=== PATIENT | female | born 1995 | race Caucasian/White ===

== ENCOUNTER 2016-10-22 07:31 | Emergency (ER) | payer SELFPAY ==
[2016-10-22] MEDS ORDERED: MORPHINE SULFATE 10 MG/ML INJ IV ONE ×2 (07:48→08:30)
[2016-10-22 08:05] LABS: ABSOLUTE BASOPHILS # (AUTO) 0.1 10^3/uL (0.0-0.2); ABSOLUTE EOSINOPHILS # (AUTO) 0.5 10^3/uL (0.0-0.6); ABSOLUTE LYMPHOCYTES (AUTO) 1.9 10^3/uL (0.5-4.7); ABSOLUTE MONOCYTES (AUTO) 0.6 10^3/uL (0.1-1.4); BASOPHILS % (AUTO) 0.8 % (0-2); EOSINOPHILS % (AUTO) 6.9 % (0-6); HEMATOCRIT 35.5 % (36.0-47.0); HGB HCT DIFFERENCE 0.5; LYMPHOCYTES % (AUTO) 27.5 % (13-45); MEAN CORPUSCULAR HEMOGLOBIN 31.2 pg (27.0-33.4); MEAN CORPUSCULAR VOLUME 92 fl (80-97); MONOCYTES % (AUTO) 7.9 % (3-13); RED BLOOD COUNT 3.86 10^6/uL (3.72-5.28); RED CELL DISTRIBUTION WIDTH 12.9 % (11.5-14.0); SEGMENTED NEUTROPHILS % (AUTO) 56.9 % (42-78); WHITE BLOOD COUNT 7.1 10^3/uL (4.0-10.5)
[2016-10-22 08:09] LABS: APPEARANCE,URINE CLEAR; BILIRUBIN,URINE NEGATIVE (NEGATIVE); GLUCOSE, URINE NEGATIVE (NEGATIVE); KETONES,URINE NEGATIVE (NEGATIVE); LEUKOCYTE ESTERASE,URINE NEGATIVE (NEGATIVE); NITRITE,URINE NEGATIVE (NEGATIVE); PROTEIN,URINE NEGATIVE (NEGATIVE); UROBILINOGEN,URINE NEGATIVE mg/dL (<2.0)
[2016-10-22 08:23] VITALS: BP 113/62
[2016-10-22 08:27] LABS: ALANINE AMINOTRANSFERASE 19 U/L (9-52); ALBUMIN 3.4 g/dL (3.5-5.0); ALKALINE PHOSPHATASE 48 U/L (38-126); ANION GAP 6 (5-19); ASPARTATE AMINO TRANSFERASE 16 U/L (14-36); BILIRUBIN,DIRECT 0.3 mg/dL (0.0-0.4); BILIRUBIN,TOTAL 0.4 mg/dL (0.2-1.3); BLOOD UREA NITROGEN 7 mg/dL (7-20); CALCIUM 8.3 mg/dL (8.4-10.2); CARBON DIOXIDE 25 mmol/L (22-30); CHLORIDE 107 mmol/L (98-107); CREATININE RESULT 0.62 mg/dL (0.52-1.25); GLUCOSE 88 mg/dL (75-110); LIPASE 62.6 U/L (23-300); POTASSIUM 3.7 mmol/L (3.6-5.0); SODIUM 138.2 mmol/L (137-145); TOTAL PROTEIN 5.8 g/dL (6.3-8.2)
--- NOTE | 2016-10-22 10:06 | RADIOLOGY REPORT (SQ) ---
EXAM DESCRIPTION: U/S NON OB PEL W/DOPPLER COMPLETED DATE/TIME: 10/22/2016 9:36 am REASON FOR STUDY: rlq pain, no appendix COMPARISON: None. TECHNIQUE: Dynamic and static grayscale images acquired of the pelvis via transvaginal approach and recorded on PACS. Additional selected color Doppler and spectral images recorded. LIMITATIONS: None. FINDINGS: UTERUS: Contour normal. No mass. ENDOMETRIAL STRIPE: No focal or generalized thickening. No masses. CERVIX: No nabothian cysts. RIGHT OVARY: Largely occupied by a 7.8 cm diameter cyst. RIGHT OVARY DOPPLER: Normal arterial vascular flow without evidence for torsion. LEFT OVARY: No abnormal masses. LEFT OVARY DOPPLER: Normal arterial vascular flow without evidence for torsion. FREE FLUID: None noted. OTHER: No other significant finding. MEASUREMENTS: UTERUS: 6.6 x 5.6 x 3.5 cm ENDOMETRIAL STRIPE: 9 mm RIGHT OVARY: 8.0 x 8.5 x 5.9 cm LEFT OVARY: 3.1 x 2.5 x 1.6 cm. IMPRESSION: 8 cm cyst right ovary. TECHNICAL DOCUMENTATION: JOB ID: [id number] [employer]- All Rights Reserved
--- NOTE | 2016-10-22 10:17 | ER Document Report ---
ED GI/ - General Chief Complaint: Flank Pain Stated Complaint: FLANK PAIN Time Seen by Provider: 10/22/16 07:35 Mode of Arrival: Medic Information source: Patient Notes: Pt is a 21 year old female who presents to the ER today for right lower abdominal pain x 1 day. She has a history of ovarian cysts. She admits to nausea but no vomiting this morning. She denies diarrhea, abnormal vaginal discharge, dysuria, hematuria, hx of kidney stones, fever/chills. She does not have an appendix due to appendicitis nor does she have a gallbladder. TRAVEL OUTSIDE OF THE [place] IN LAST 30 DAYS: No - Related Data Allergies/Adverse Reactions: amitriptyline Allergy (Verified 10/22/16 08:06) doxycycline Allergy (Verified 10/22/16 08:06) Penicillins Allergy (Verified 10/22/16 08:06) Past Medical History - General Information source: Patient - Social History Smoking Status: Never Smoker Chew tobacco use (# tins/day): No Frequency of alcohol use: None Drug Abuse: None Family History: Reviewed & Not Pertinent Past Surgical History: Reports: Hx Appendectomy, Hx Cholecystectomy Review of Systems - Review of Systems Constitutional: No symptoms reported EENT: No symptoms reported Cardiovascular: No symptoms reported Respiratory: No symptoms reported Gastrointestinal: See HPI Genitourinary: No symptoms reported Female Genitourinary: No symptoms reported Musculoskeletal: No symptoms reported Skin: No symptoms reported Hematologic/Lymphatic: No symptoms reported Neurological/Psychological: No symptoms reported Physical Exam - Vital signs Vitals: Temp Pulse Resp BP Pulse Ox 98.8 F 80 20 113/62 100 10/22/16 08:07 10/22/16 08:07 10/22/16 08:07 10/22/16 08:07 10/22/16 08:07 - Notes Notes: PHYSICAL EXAMINATION: GENERAL: Mildly uncomfortable, but in no acute distress. HEAD: Atraumatic, normocephalic. EYES: Pupils equal round and reactive to light, extraocular movements intact, sclera anicteric, conjunctiva are normal. NECK: Normal range of motion, supple without lymphadenopathy LUNGS: CTAB and equal. No wheezes rales or rhonchi. HEART: Regular rate and rhythm without murmurs ABDOMEN: Soft, right lower quadrant tenderness. No guarding, no rebound BACK: no vertebral tenderness, normal ROM GI/: no CVA tenderness EXTREMITIES: Normal range of motion, no pitting edema. No cyanosis. NEUROLOGICAL: Cranial nerves grossly intact. Normal sensory/motor exams. PSYCH: Normal mood, normal affect. SKIN: Warm, Dry, normal turgor, no rashes or lesions noted Course - Re-evaluation Re-evalutation: 10/22/16 11:18 WBC is normal, labwork normal, negative, vital signs all normal. ultrasound reports an 8cm right ovarian cyst. COLBY Ching surface to air weapons officer, was called and states that this is to be followed up outpatient, no reason based on workup today for admission or surgery today. Pt keeps declining pain medicine saying "I don't like narcotics." Mother and grandmother were upset during this visit because they state they want "this taken care of today." They keep referring to the surgery she's had in the past on her right ovarian cyst from the ER to the OR but she had appendicitis at that time and they found the ovarian cyst as well. I told family multiple times during this visit that she only went straight to the OR because she had appendicitis, that that's not how you manage an ovarian cyst. Mom left the ER and went to Dr. Kerr's office to "see what we can get done about this today!" I did advise family multiple times that this is not how you manage an ovarian cyst. I am sending pt home with pain medication and having her follow up with women's health. anatoliy Ching surface to air weapons officer agrees. - Vital Signs Vital signs: Temp Pulse Resp BP Pulse Ox 98.8 F 80 20 113/62 100 10/22/16 08:07 10/22/16 08:07 10/22/16 08:07 10/22/16 08:07 10/22/16 08:07 - Laboratory Result Diagrams: 10/22/16 07:45 10/22/16 07:45 Laboratory results interpreted by me: 10/22/16 10/22/16 07:45 07:45 Hct 35.5 L Eosinophils % 6.9 H Calcium 8.3 L Total Protein 5.8 L Albumin 3.4 L Discharge - Discharge Clinical Impression: Ovarian cyst, right Condition: Stable Disposition: HOME, SELF-CARE Additional Instructions: Return immediately for any new or worsening symptoms. Follow up with obgyn, call tomorrow to make followup appointment. Prescriptions: Hydrocodone/Acetaminophen [[place] 5-325 mg Tablet] 1 tab PO Q4 PRN #12 tab PRN Reason: Referrals: [facility] [Provider Group] - Follow up as needed
== END 2016-10-22 10:38 | disposition home or self-care (01) ==
LOC: ER 07:31
DX: N83.201 Unspecified ovarian cyst, right side (principal); R11.0 Nausea; Z90.49 Acquired absence of other specified parts of digestive tract; Z88.1 Allergy status to other antibiotic agents; Z88.0 Allergy status to penicillin; Z98.890 Other specified postprocedural states
CPT/HCPCS: 96376; 99284; 96374; 36415; 83690; 84703; 85025; 80053; 81001; 76856; 93976; J2270

== ENCOUNTER 2016-10-22 16:51 | Inpatient (IN) | payer MEDICAID ==
[~2016-10-22 16:51] MED LIST: GLYCOPYRROLATE INJ 0.4 MG/2 ML VIAL ONE; NEOSTIGMINE METHYLSULFATE 10 MG/10 ML VIAL ONE; ROCURONIUM BROMIDE INJ 50 MG/5 ML VIAL IV ONE; SUCCINYLCHOLINE CHLORIDE INJ 200 MG/10 ML VIAL ONE
[2016-10-22] MEDS ORDERED: CEFAZOLIN 1 GM/D5W RTU 1 GM/50 ML RTUPB IV ONE (17:01)
[2016-10-22] MEDS ORDERED: FENTANYL CITRATE INJ/PF 100 MCG/2 ML AMPUL ONE ×2 (17:17)
[2016-10-22] MEDS ORDERED: MIDAZOLAM 2 MG/2 ML INJ ONE (17:18)
[2016-10-22] MEDS ORDERED: IBUPROFEN INJ 800 MG/8 ML VIAL IV ONE (17:18)
[2016-10-22] MEDS ORDERED: DEXAMETHASONE SOD PHOSPHATE INJ 4 MG/1 ML VIAL ONE (17:18)
[2016-10-22] MEDS ORDERED: MORPHINE SULFATE 10 MG/ML INJ ONE (17:18)
[2016-10-22] MEDS ORDERED: PROPOFOL INJ 200 MG/20 ML VIAL IV ONE (17:18)
[2016-10-22] MEDS ORDERED: ONDANSETRON HCL INJ/PF 4 MG/2 ML SDV ONE (17:18)
[2016-10-22] MEDS ORDERED: OXYCODONE-ACETAMINOPHEN 5-325 MG TABLET PO PRN ×3 (17:30)
[2016-10-22] MEDS ORDERED: PROMETHAZINE HCL INJ 25 MG/1 ML VIAL IM PRN ×2 (17:30)
[2016-10-22] MEDS ORDERED: SIMETHICONE 80 MG TAB.CHEW PO PRN ×2 (17:30)
[2016-10-22] MEDS ORDERED: RINGERS SOLUTION,LACTATED 1,000 ML IV SCH (17:30)
[2016-10-22] MEDS ORDERED: HYDROMORPHONE HCL INJ/PF 2 MG/ML AMPULE IV PRN (17:30)
[2016-10-22] MEDS ORDERED: ACETAMINOPHEN 325 MG TABLET PO PRN ×2 (17:30)
[2016-10-22] MEDS ORDERED: METRONIDAZOLE 500 MG/NS RTU 100 ML IV ONE (17:34)
[2016-10-22] MEDS ORDERED: IBUPROFEN 800 MG TABLET PO SCH (18:00)
[2016-10-22] MEDS ORDERED: DOCUSATE SODIUM 100 MG CAPSULE PO SCH (18:00)
[2016-10-22] MEDS ORDERED: PROMETHAZINE HCL INJ 25 MG/1 ML VIAL IV PRN ×2 (18:55)
[2016-10-22] MEDS ORDERED: MORPHINE SULFATE 10 MG/ML INJ IV PRN (18:55)
[2016-10-22] MEDS ORDERED: FENTANYL CITRATE INJ/PF 100 MCG/2 ML AMPUL IV PRN ×3 (18:55)
[2016-10-22] MEDS ORDERED: ONDANSETRON HCL INJ/PF 4 MG/2 ML SDV IV PRN ×2 (18:55→22:21)
[2016-10-22] MEDS ORDERED: MEPERIDINE HCL/PF INJ 25 MG/1 ML DISP.SYRIN IV PRN (18:55)
[2016-10-22] MEDS ORDERED: DIPHENHYDRAMINE HCL 50 MG/ML VIAL IV PRN (18:55)
[2016-10-22] MEDS ORDERED: MEPERIDINE HCL/PF INJ 25 MG/1 ML DISP.SYRIN ONE (19:00)
[2016-10-22] MEDS: HYDROMORPHONE HCL INJ/PF 2 MG/ML AMPULE IV PRN (20:51)
[2016-10-22] MEDS: DIPHENHYDRAMINE HCL 50 MG/ML VIAL IV PRN (22:01)
[2016-10-22] MEDS: DOCUSATE SODIUM 100 MG CAPSULE PO SCH (23:30)
[2016-10-22] MEDS: IBUPROFEN 800 MG TABLET PO SCH (23:30)
[2016-10-23] MEDS: HYDROMORPHONE HCL INJ/PF 2 MG/ML AMPULE IV PRN (01:19)
[2016-10-23] MEDS: RINGERS SOLUTION,LACTATED 1,000 ML IV SCH ×2 (01:38→20:01)
[2016-10-23] MEDS: DIPHENHYDRAMINE HCL 50 MG/ML VIAL IV PRN ×2 (04:02→23:14)
[2016-10-23] MEDS: OXYCODONE-ACETAMINOPHEN 5-325 MG TABLET PO PRN ×2 (04:25→20:42)
[2016-10-23] MEDS: IBUPROFEN 800 MG TABLET PO SCH ×4 (06:15→21:03)
--- NOTE | 2016-10-23 06:56 | PDOC PROGRESS REPORT ---
Subjective Subjective:: Pt reports good pain control, no n/v, min po intake, no flatus Physical Exam - Physical Exam Vital Signs: Temp Pulse Resp BP Pulse Ox 98.5 F 98 16 110/50 L 95 10/23/16 03:35 10/23/16 03:35 10/23/16 03:35 10/23/16 03:35 10/23/16 03:35 Intake & Output 10/21/16 10/22/16 10/23/16 06:59 06:59 06:59 Intake Total 1500 Output Total 1675 Balance -175 Weight 45 kg General appearance: PRESENT: no acute distress, cooperative, well-developed GI/Abdominal exam: PRESENT: normal bowel sounds - Incision bandage is clean/dry/ intact Result Laboratory Results: 10/22/16 17:17 Blood Type A POSITIVE Antibody Screen NEGATIVE Assessment & Plan - Diagnosis (1) Pelvic pain Is this a current diagnosis for this admission?: Yes (2) Ovarian cyst, right Is this a current diagnosis for this admission?: Yes - Time Time Spent with patient: Less than 15 minutes Medications reviewed and adjusted accordingly: Yes Anticipated discharge: Home Within: within 48 hours - Pod1 Doing well Continiue routine PostOp Care
[2016-10-23] MEDS: DOCUSATE SODIUM 100 MG CAPSULE PO SCH ×2 (10:21→17:33)
--- NOTE | 2016-10-23 10:31 | PDOC PROGRESS REPORT ---
Subjective Progress Note for:: 10/23/16 Subjective:: Subjective: Yamilka reports mild nausea but no vomiting since last being seen. Physical Exam - Physical Exam Vital Signs: Temp Pulse Resp BP Pulse Ox 98.9 F 79 16 103/55 L 95 10/23/16 07:41 10/23/16 07:41 10/23/16 07:41 10/23/16 07:41 10/23/16 07:41 Intake & Output 10/22/16 10/23/16 10/24/16 06:59 06:59 06:59 Intake Total 1500 Output Total 1675 Balance -175 Weight 45 kg General appearance: PRESENT: cooperative, mild distress Head exam: PRESENT: atraumatic Respiratory exam: PRESENT: accessory muscle use Cardiovascular exam: PRESENT: RRR Pulses: PRESENT: normal dorsalis pedis pul, +2 pedal pulses bilateral Vascular exam: PRESENT: normal capillary refill GI/Abdominal exam: PRESENT: normal bowel sounds, soft. ABSENT: distended, guarding, mass, organolmegaly, rebound, tenderness Extremities exam: PRESENT: full ROM. ABSENT: calf tenderness, clubbing, pedal edema Result Laboratory Results: 10/22/16 17:17 Blood Type A POSITIVE Antibody Screen NEGATIVE Assessment & Plan - Diagnosis (1) Ovarian cyst, right Is this a current diagnosis for this admission?: Yes - Time Time Spent with patient: Less than 15 minutes Anticipated discharge: Home Within: within 24 hours Disposition: The plan is to remove the morrell catheter, as well as work on diet and pain control.
--- NOTE | 2016-10-23 12:26 | Physician Advisory Note ---
Physician Advisor ProgressNote .: [facility], I have reviewed the medical record for this patient. Physician Advisor Statement: Please consider documenting, if you agree: 1. Status/medical necessity: please give explicit reasons pt needs Inpatient status (what makes her high severity of illness/intensity of service, why she needs 2nd night in hospital, ...). 2. R.e. Ovarian Cysts - Please state not only which side, but what type: hemorrhagic/follicular/endometrial/serous/simple/multilocular/adherent/dermoid/ ... 3. "underweight with suspected protein-calorie malnutrition [state mild, mod, or severe] with BMI 17.6, ____[?wt loss, ?appetite loss, anorexia nervosa??] " [if possible, give specifics on intake, wt loss, loss of SQ fat & muscle mass, diminished hand technical adjuster strength, & clinical importance such as (A) nutritional assessment ordered, (B) modified diet or supplements ordered, (C) additional labs ordered, (D) prolonged wound healing time, (E) delayed infxn clearance] Status: Abd pain, or ovarian cyst/torsion, if no additional high risk clinical issues, should be brought in as Obs, not INpatient - changing to Inpatient the next day if not promptly responding to initial tx & able to go home. However, this pt not hemodynamically stable or tolerating po's or voiding adequately after a day of hospital tx. Therefore, now appropriate for Inpatient status. Discussion: Surgery was last night but pt still taking only sips po since 7AM per nurse today. IVF d/c'd. Has only voided once all day today. Nurse reports she has had a lot of trouble with pain, may still need more IV DIlaudid this PM for pain control. Pt had itching tx'd with benadryl. Attending has told nurse he doesn't expect to be able to d/c pt until 10/24. Thanks! CK
[2016-10-23] MEDS: FLUTICASONE NASAL SPRAY 50 MCG/SPRY 120 SPRAY/16 GM NASL SCH (17:36)
[2016-10-23] MEDS ORDERED: RINGERS SOLUTION,LACTATED 500 ML IV ONE (20:30)
[2016-10-24] MEDS: IBUPROFEN 800 MG TABLET PO SCH ×3 (03:38→13:33)
[2016-10-24] MEDS: RINGERS SOLUTION,LACTATED 1,000 ML IV SCH (05:43)
[2016-10-24 08:47] LABS: ABSOLUTE EOSINOPHILS # (AUTO) 0.6 10^3/uL (0.0-0.6); ABSOLUTE LYMPHOCYTES (AUTO) 1.9 10^3/uL (0.5-4.7); ABSOLUTE MONOCYTES (AUTO) 0.9 10^3/uL (0.1-1.4); ABSOLUTE NEUT (AUTO) 4.2 10^3/uL (1.7-8.2); BASOPHILS % (AUTO) 0.2 % (0-2); HEMATOCRIT 33.5 % (36.0-47.0); HEMOGLOBIN 11.4 g/dL (12.0-15.5); HGB HCT DIFFERENCE 0.7; LYMPHOCYTES % (AUTO) 24.8 % (13-45); MEAN CORPUSCULAR HEMOGLOBIN 31.4 pg (27.0-33.4); MEAN CORPUSCULAR HGB CONC 34.1 g/dL (32.0-36.0); MEAN CORPUSCULAR VOLUME 92 fl (80-97); RED BLOOD COUNT 3.65 10^6/uL (3.72-5.28); WHITE BLOOD COUNT 7.6 10^3/uL (4.0-10.5)
[2016-10-24] MEDS ORDERED: NITROFURANTOIN MONOHYD/M-CRYST 100 MG CAPSULE PO SCH (10:00)
[2016-10-24] MEDS: DOCUSATE SODIUM 100 MG CAPSULE PO SCH (11:04)
[2016-10-24] MEDS: FLUTICASONE NASAL SPRAY 50 MCG/SPRY 120 SPRAY/16 GM NASL SCH (11:05)
[2016-10-24] MEDS ORDERED: ONDANSETRON 4 MG TAB.RAPDIS PO ONE (13:30)
--- NOTE | 2016-10-24 16:42 | PDOC PROGRESS REPORT ---
Subjective Subjective:: Pt reports good pain control, no n/v, +flatus No new complaints Physical Exam - Physical Exam Vital Signs: Temp Pulse Resp BP Pulse Ox 98.8 F 90 16 107/59 L 99 10/24/16 11:25 10/24/16 11:25 10/24/16 11:25 10/24/16 11:25 10/24/16 11:25 Intake & Output 10/23/16 10/24/16 10/25/16 06:59 06:59 06:59 Intake Total 1500 2375 Output Total 1675 600 800 Balance -175 1775 -800 Weight 45 kg General appearance: PRESENT: no acute distress, cooperative, well-developed, well-nourished GI/Abdominal exam: PRESENT: normal bowel sounds - Incision bandage is clean/dry/ intact Result Laboratory Results: 10/24/16 08:02 10/24/16 08:02 WBC 7.6 RBC 3.65 L Hgb 11.4 L Hct 33.5 L MCV 92 MCH 31.4 MCHC 34.1 RDW 13.0 Plt Count 172 Seg Neutrophils % 55.0 Lymphocytes % 24.8 Monocytes % 12.0 Eosinophils % 8.0 H Basophils % 0.2 Absolute Neutrophils 4.2 Absolute Lymphocytes 1.9 Absolute Monocytes 0.9 Absolute Eosinophils 0.6 Absolute Basophils 0.0 Assessment & Plan - Diagnosis (1) Pelvic pain Is this a current diagnosis for this admission?: Yes (2) Ovarian cyst, right Is this a current diagnosis for this admission?: Yes - Time Time Spent with patient: Less than 15 minutes Medications reviewed and adjusted accordingly: Yes Anticipated discharge: Home - Will d/c home F/U on saturday for incsion check
[2016-10-24 17:04] VITALS: BP 101/57
--- NOTE | 2016-12-09 09:47 | OPERATIVE REPORT E ---
Operative Report NAME: OMA HAYDEN : 1995 AGE: 21Y DATE OF SURGERY: 10/22/2016 ROOM: 211 PREOPERATIVE DIAGNOSIS: Suspected torsion of large right ovarian cyst. POSTOPERATIVE DIAGNOSIS: Ruptured right ovarian cyst. OPERATION: 1. Exploratory laparotomy. 2. Shelling out of cyst wall. SURGEON: Leo Hankins D.O. RETAIL SUPPORT ASSOCIATE: None. ANESTHESIA: General tracheal anesthesia. COMPLICATIONS: None. PATHOLOGY: None. ESTIMATED BLOOD LOSS: 25 mL. FINDINGS: 1. Large right ruptured hemorrhagic ovarian cyst. 2. Left ovary within normal limits. PROCEDURE: Patient was taken to the operating room where she was placed in the dorsal supine position upon the operating room table. She was then administered her general tracheal anesthesia. Once this was done, she was prepped and draped in the normal sterile fashion. A scalpel was then used to make a Pfannenstiel skin incision. The skin incision was carried down to the subcutaneous tissue to the layer of the fascia. The fascia was then incised midline. Fascia incision was then extended bilaterally using the Bovie cautery. The superior fascial edge was grasped with Nora clamps, elevated and the rectus muscles dissected off sharply and bluntly. Attention was then turned to the inferior fascial edge and was grasped with Nora clamps, elevated and the rectus muscles dissected off sharply and bluntly. Rectus muscles were then in the midline. Peritoneum identified and entered bluntly with the surgeon's hands. Examination of the pelvis revealed a right ruptured hemorrhagic ovarian cyst and a normal perineal left ovary. The right ovarian cyst wall was then shelled out and then made hemostatic using Bovie cautery. Following this, the pelvis was then irrigated. The right ovary was reinspected and found to have excellent hemostasis. The rectus muscles were then reapproximated using 1-0 Vicryl interrupted sutures. The fascia was then closed using 1-0 Vicryl running locking fashion. Subcutaneous space was then made hemostatic using Bovie cautery. Skin was then closed with absorbable kathia, covered with an OpSite, and then with a pressor dressing. At this point in time, the procedure was terminated. All sponge, lap and needle counts were correct x2. Patient tolerated the procedure well. Patient was taken to the recovery room in stable condition. DICTATING PHYSICIAN: DO Yolanda [id number] [id number] PHY#: [id number] ID: [id number] JOB#: [id number] ACCT: [id number] cc:Leo Hankins D.O. >
--- NOTE | 2016-12-09 12:18 | DISCHARGE SUMMARY E ---
Discharge Summary NAME: OMA HAYDEN : 1995 AGE: 21Y ADMITTED: 10/22/2016 DISCHARGED: 10/24/2016 REASON FOR ADMISSION: Suspected right ovarian torsion. FINAL DIAGNOSIS: Suspected right ovarian torsion. HISTORY AND PHYSICAL: See history and physical from 10/22/2016 for full details. HOSPITAL COURSE: The patient was admitted to the hospital where she undergoes her surgical procedure. It is an uncomplicated surgical procedure, see operative note for full details. She was transferred to the woman's surgical floor for her postoperative care. She starts routine postoperative care. During her night of surgery her vital signs remained stable. She remains afebrile. She has good pain control, no nausea or vomiting. Postoperative day #1 her hemoglobin is stable. By postoperative day #2 the patient is meeting all goals in order to be discharged home. Her incision is clean, dry, and intact. Therefore, the patient is discharged home. DISCHARGE INSTRUCTION: Discharge patient home. Diet regular. Activity is pelvic rest x4 weeks, no heaving lifting x4 weeks. Follow up is 1 week with [facility]. SPECIAL INSTRUCTIONS: The patient instructed to call MD if temperature is greater than 1.5 or signs and symptoms of wound infection. MEDICATIONS ON DISCHARGE: Percocet and Motrin. DICTATING PHYSICIAN: Leo Hankins DO [id number] PHY#: [id number] ID: [id number] JOB#: [id number] ACCT: [id number] cc:Leo Hankins D.O. >
== END 2016-10-24 17:30 | disposition home or self-care (01) | DRG 743 ==
LOC: INOR 16:51 → OROUT 16:51 → EDSTATUS 17:30 → 2N 19:40
PROVIDERS: ADMIT Obstetrics & Gynecology; ATTEND Obstetrics & Gynecology
PROC: 0UB00ZZ Excision of Right Ovary, Open Approach (ICD-10-PCS; principal; 2016-10-22 17:30)
DX: N83.291 Other ovarian cyst, right side (principal); R10.2 Pelvic and perineal pain; J45.909 Unspecified asthma, uncomplicated; Z88.6 Allergy status to analgesic agent; Z82.49 Family history of ischemic heart disease and other diseases of the circulatory system; Z88.0 Allergy status to penicillin
CPT/HCPCS: 36415; 840; 85025; 86850; 86900; 86901; J0330; J0690; J1100; J1170; J1200; J1741; J2175; J2250; J2270; J2405; J2704; J3010; J3490; J7120; J8499; S0119

== ENCOUNTER 2018-04-01 08:03 | Emergency (ER) | payer MEDICAID, OTHER ==
--- NOTE | 2018-04-01 08:47 | ER Document Report ---
ED General - General Chief Complaint: Lower Abdominal Pain Stated Complaint: ABDOMINAL PAIN Time Seen by Provider: 04/01/18 08:31 TRAVEL OUTSIDE OF THE [place] IN LAST 30 DAYS: No - HPI Notes: Patient is a 22-year-old female with a history of ovarian cyst who presents emergency department complaining of right lower pelvic pain times 2 days. Patient states that the pain is sharp and does not radiate. Patient states that she has had pain like this previously with an ovarian cyst in the past. She is eating and drinking without difficult he. She is urinating normally and having normal bowel movements. She has no concern of STD or STI. She has not had any vaginal discharge, odor, or bleeding. Denies . Denies any headache, fever, neck pain, URI, sore throat, chest pain, palpitations, syncope, cough, shortness of breath, wheeze, dyspnea, nausea/vomiting/diarrhea, urinary retention, dysuria, hematuria, or rash. Surgical h/o appendectomy - Related Data Allergies/Adverse Reactions: amitriptyline Allergy (Verified 04/01/18 08:05) "Chest feels like its on fire" codeine Allergy (Verified 04/01/18 08:05) GI upset doxycycline Allergy (Verified 04/01/18 08:05) Rash erythromycin base Allergy (Verified 04/01/18 08:05) Rash Penicillins Allergy (Verified 04/01/18 08:05) "Breathing problems" promethazine [From Phenergan] Allergy (Verified 04/01/18 08:05) Irritability Past Medical History - Social History Smoking Status: Never Smoker Family History: Reviewed & Not Pertinent Patient has suicidal ideation: No Patient has homicidal ideation: No Neurological Medical History: Renal/ Medical History: Denies: Hx Peritoneal Dialysis Musculoskeletal Medical History: Psychiatric Medical History: Reports: Hx Depression Past Surgical History: Reports: Hx Abdominal Surgery, Hx Appendectomy, Hx Cholecystectomy, Hx Tonsillectomy Review of Systems - Review of Systems -: Yes All other systems reviewed and negative Physical Exam - Vital signs Vitals: Temp Pulse Resp BP Pulse Ox 97.9 F 89 18 119/88 H 99 04/01/18 08:13 04/01/18 08:13 04/01/18 08:13 04/01/18 08:13 04/01/18 08:13 - Notes Notes: PHYSICAL EXAMINATION: GENERAL: Well-appearing, well-nourished and in no acute distress. LUNGS: Breath sounds clear to auscultation bilaterally and equal. No wheezes rales or rhonchi. HEART: Regular rate and rhythm without murmurs, rubs, gallops. ABDOMEN: Soft, nondistended abdomen. No guarding, no rebound. Normal bowel sounds present. No CVA tenderness bilaterally. + tenderness rt lower pelvic. CRACKER AND COOKIE MACHINE OPERATOR: deferred, pt self-swabbed Musculoskeletal: FROM to passive/active. Strength 5+/5. Extremities: No cyanosis, clubbing, or edema b/l. Peripheral pulses 2+. Capillary refill less than 3 seconds. NEUROLOGICAL: Normal speech, normal gait. PSYCH: Normal mood, normal affect. SKIN: Warm, Dry, normal turgor, no rashes or lesions noted. Course - Re-evaluation Re-evalutation: 04/01/18 12:54 Patient is an afebrile, well-hydrated, 22-year-old female who presents to the ED with rt pelvic pain unspecified and BV/Yeast infection. Vitals are acceptable without any significant tachycardia, tachypnea, or hypoxia. PE is otherwise unremarkable. Urinalysis and hCG are unremarkable for any acute pathology. See wet mount results. Chlam/gonorrhea tests are pending. Patient declined wanting any treatment for chlamydia/gonorrhea at this time and is aware that she may have the return if any test comes back positive. Patient is nontoxic-appearing is tolerating p.o. without any difficulties. Transvaginal ultrasound was also unremarkable for any acute pathology. No other labs or imaging warranted at this time based on H&P. H/o appendectomy. Low suspicion/risk for acute appendicitis, bowel obstruction, acute cholecystitis, acute cholangitis, perforated diverticulitis, incarcerated hernia, pancreatitis, perforated ulcer, peritonitis, sepsis, pelvic inflammatory disease, ectopic , tubo- ovarian abscess, ovarian torsion, or other systemic emergent condition at this time. Patient is aware that her condition can change from initial presentation and she needs to monitor symptoms closely and seek medical attention if any acute changes. I will send her home with prescription for Flagyl/diflucan. Conservative measures otherwise for symptoms. Recheck with your PCM/OBGYN in 3- 5 days. Return to the ED with any worsening/concerning symptoms otherwise as reviewed in discharge. Patient is in agreement. - Vital Signs Vital signs: Temp Pulse Resp BP Pulse Ox 97.9 F 89 18 119/88 H 99 04/01/18 08:13 04/01/18 08:13 04/01/18 08:13 04/01/18 08:13 04/01/18 08:13 Discharge - Discharge Clinical Impression: Vaginal yeast infection, BV (bacterial vaginosis), Pelvic pain Condition: Stable Disposition: HOME, SELF-CARE Instructions: Pelvic Pain ([facility]) Additional Instructions: Maintain fluid intake Proper hygienic technique Keep the skin clean Tylenol/ibuprofen as needed Check in with the health department this week for further testing if warranted Your chlamydia/Ghon test are pending and you will be notified if positive results; you may call in 1 day for the results as well F/u with your PCM/OBGYN in 3-5 days for a recheck Return to the ED with any development of CALL/fever, trouble with vision, eye redness, worsening pain, urethral discharge, urinary retention, blood in the urine, flank pain, abdominal pain, n/v, Chest Pain, shortness of breath, joint pains, trouble breathing, or any other worsening/concerning symptoms as needed otherwise. Prescriptions: Fluconazole [Diflucan] 150 mg PO ONCE PRN #1 tablet PRN Reason: Metronidazole [Flagyl] 500 mg PO BID #14 tablet Naproxen 500 mg PO BID #20 tablet Forms: Elevated Blood Pressure Referrals: RELL MARIEE MD [Primary Care Provider] - Follow up as needed SALES UTILITY REPRESENTATIVE [Provider Group] - Follow up in 3-5 days
[2018-04-01 09:20] LABS: APPEARANCE,URINE SLIGHTLY-CLOUDY; BILIRUBIN,URINE NEGATIVE (NEGATIVE); COLOR,URINE YELLOW; GLUCOSE, URINE NEGATIVE (NEGATIVE); KETONES,URINE NEGATIVE (NEGATIVE); LEUKOCYTE ESTERASE,URINE NEGATIVE (NEGATIVE); NITRITE,URINE NEGATIVE (NEGATIVE); PROTEIN,URINE NEGATIVE (NEGATIVE); URINE SPECIFIC GRAVITY 1.018; UROBILINOGEN,URINE NEGATIVE mg/dL (<2.0)
[2018-04-01] MEDS ORDERED: IBUPROFEN 600 MG TABLET PO ONE (10:31)
--- NOTE | 2018-04-01 11:03 | RADIOLOGY REPORT (SQ) ---
EXAM DESCRIPTION: U/S NON-OB PELVIS W/O DOP COMPLETED DATE/TIME: 04/01/2018 10:52 am REASON FOR STUDY: rt pelvic pain COMPARISON: None. TECHNIQUE: Dynamic and static grayscale images acquired of the pelvis via transabdominal approach an d recorded on PACS. Additional selected color Doppler and spectral images recorded. LIMITATIONS: None. FINDINGS: UTERUS: Unremarkable in size measuring 5.6 x 4.0 x 3.0 cm. No focal lesions. ENDOMETRIAL STRIPE: Visualized measuring up to 5 mm. CERVIX: No nabothian cysts. RIGHT OVARY AND DOPPLER: Normal size measuring 4.3 x 2.3 x 2.4 cm. No worrisome masses. Normal arteri al and venous vascular flow without evidence for torsion. LEFT OVARY AND DOPPLER: Normal size measuring 2.7 x 1.6 x 2.1 cm. No worrisome masses. Normal arteria l and venous vascular flow without evidence for torsion. FREE FLUID: None noted. OTHER: No other significant finding. IMPRESSION: Unremarkable pelvic ultrasound. TECHNICAL DOCUMENTATION: JOB ID: [id number] [employer]- All Rights Reserved Rev Reading location - IP/workstation name: [email or web address]
[2018-04-01 12:31] LABS: BACTERIA (WET MOUNT) 4+ BACTERIA SEEN; EPITHELIALS (WET MOUNT) 4+ EPITHELIALS SEEN; T.VAGINALIS (WET MOUNT) NO TRICHOMONAS SEEN; WBCS (WET MOUNT) 2+ WBCS SEEN; YEAST (WET MOUNT) YEAST SEEN
[2018-04-01 13:35] VITALS: BP 115/76
[2018-04-01 13:56] LABS: CHLAM PCR NOT DETECTED (NOT DETECT); GON PCR NOT DETECTED (NOT DETECT)
== END 2018-04-01 13:00 | disposition home or self-care (01) ==
LOC: ER 08:03
DX: B37.3 Candidiasis of vulva and vagina (principal); N76.0 Acute vaginitis; B96.89 Other specified bacterial agents as the cause of diseases classified elsewhere; R10.2 Pelvic and perineal pain; Z87.42 Personal history of other diseases of the female genital tract; Z88.8 Allergy status to other drugs, medicaments and biological substances; Z88.5 Allergy status to narcotic agent; Z88.1 Allergy status to other antibiotic agents; Z88.0 Allergy status to penicillin
CPT/HCPCS: 76856; 81001; 81025; 87086; 87210; 87491; 87591; 99284

== ENCOUNTER 2018-05-13 19:21 | Emergency (ER) | payer OTHER ==
[2018-05-13] MEDS ORDERED: ACETAMINOPHEN 325 MG TABLET PO ONE (20:39)
[2018-05-13] MEDS ORDERED: KETOROLAC TROMETHAMINE 60 MG/2 ML SDV IM ONE (20:39)
[2018-05-13 21:00] LABS: ABSOLUTE EOSINOPHILS # (AUTO) 0.1 10^3/uL (0.0-0.6); ABSOLUTE LYMPHOCYTES (AUTO) 2.7 10^3/uL (0.5-4.7); ABSOLUTE MONOCYTES (AUTO) 0.5 10^3/uL (0.1-1.4); ABSOLUTE NEUT (AUTO) 5.6 10^3/uL (1.7-8.2); BASOPHILS % (AUTO) 0.3 % (0-2); EOSINOPHILS % (AUTO) 1.1 % (0-6); HEMATOCRIT 43.8 % (36.0-47.0); HEMOGLOBIN 15.1 g/dL (12.0-15.5); LYMPHOCYTES % (AUTO) 30.1 % (13-45); MEAN CORPUSCULAR HEMOGLOBIN 30.9 pg (27.0-33.4); MEAN CORPUSCULAR HGB CONC 34.4 g/dL (32.0-36.0); MEAN CORPUSCULAR VOLUME 90 fl (80-97); MONOCYTES % (AUTO) 5.9 % (3-13); PLATELET COUNT 296 10^3/uL (150-450); RED BLOOD COUNT 4.89 10^6/uL (3.72-5.28); RED CELL DISTRIBUTION WIDTH 12.9 % (11.5-14.0); SEGMENTED NEUTROPHILS % (AUTO) 62.6 % (42-78); TOTAL CELLS COUNTED % (AUTO) 100 %
[2018-05-13 21:10] LABS: APPEARANCE,URINE CLEAR; BILIRUBIN,URINE NEGATIVE (NEGATIVE); COLOR,URINE YELLOW; GLUCOSE, URINE NEGATIVE (NEGATIVE); KETONES,URINE NEGATIVE (NEGATIVE); LEUKOCYTE ESTERASE,URINE NEGATIVE (NEGATIVE); NITRITE,URINE NEGATIVE (NEGATIVE); PROTEIN,URINE NEGATIVE (NEGATIVE); URINE SPECIFIC GRAVITY 1.009; UROBILINOGEN,URINE NEGATIVE mg/dL (<2.0)
[2018-05-13 21:14] LABS: ANION GAP 13 (5-19); BLOOD UREA NITROGEN 8 mg/dL (7-20); CALCIUM 10.7 mg/dL (8.4-10.2); CARBON DIOXIDE 25 mmol/L (22-30); CHLORIDE 101 mmol/L (98-107); GLUCOSE 94 mg/dL (75-110); SODIUM 138.9 mmol/L (137-145)
--- NOTE | 2018-05-13 23:05 | RADIOLOGY REPORT (SQ) ---
EXAM DESCRIPTION: US PELVIS COMPLETED DATE/TME: 05/13/2018 22:00 CLINICAL HISTORY: 22 years, Female, pelvic us COMPARISON: 04/01/2018 ultrasound TECHNIQUE: Transverse and longitudinal transabdominal/transvaginal sonographic images of the pelvis LIMITATIONS: None. FINDINGS: The uterus measures 7.8 x 5.0 x 3.8 cm. The endometrium measures 6.1 mm in thickness. The myometrium is homogenous. The right ovary measures 2.3 x 1.7 x 1.6 cm, the left 2.8 x 1.7 x 2.5 cm. Normal flow to each ovary. No adnexal cyst or mass. No free fluid IMPRESSION: Unremarkable exam copyright 2010 [employer]- All Rights Reserved
--- NOTE | 2018-05-13 23:21 | ER Document Report ---
ED General - General Chief Complaint: Lower Abdominal Pain Stated Complaint: VAGINAL BLEEDING Time Seen by Provider: 05/13/18 20:35 Primary Care Provider: RELL MARIEE MD [Primary Care Provider] - Follow up as needed Notes: Patient is a 22-year-old female with past medical history of appendectomy, prior right ovarian cyst resection, cholecystectomy, polycystic ovarian syndrome, presents complaining of irregular vaginal bleeding and right adnexal pain. Patient reports that she is bleeding for the last 36 hours and should not be having a cycle. She does take oral control pills, does take placebo pills but is currently on hormone-containing pills. She notes that she has highly irregular cycles but did just have a cycle less than 2 weeks ago. She was seen by her OB yesterday, informed that this could be a hemorrhagic cyst, but came to the emergency department tonight as the workup for that evaluation has not yet been completed. She also notes that she is having a cramping, aching, mild pain to her right adnexal region. Nothing improves or worsens his pain. The vaginal bleeding is described as being typical of a menstrual cycle for her. She has not had fever or constitutional symptoms. No nausea, vomiting or diarrhea. TRAVEL OUTSIDE OF THE [place] IN LAST 30 DAYS: No - Related Data Allergies/Adverse Reactions: amitriptyline Allergy (Verified 05/13/18 19:26) "Chest feels like its on fire" codeine Allergy (Verified 05/13/18 19:26) GI upset doxycycline Allergy (Verified 05/13/18 19:26) Rash erythromycin base Allergy (Verified 05/13/18 19:26) Rash Penicillins Allergy (Verified 05/13/18 19:26) "Breathing problems" promethazine [From Phenergan] Allergy (Verified 05/13/18 19:26) Irritability sulfamethoxazole [From Bactrim] Allergy (Verified 05/13/18 19:27) mouth ulcers trimethoprim [From Bactrim] Allergy (Verified 05/13/18 19:27) mouth ulcers Past Medical History - General Information source: Patient - Social History Smoking Status: Never Smoker Frequency of alcohol use: None Drug Abuse: None Lives with: Family Family History: Reviewed & Not Pertinent Patient has suicidal ideation: No Patient has homicidal ideation: No Neurological Medical History: Renal/ Medical History: Denies: Hx Peritoneal Dialysis Musculoskeletal Medical History: Psychiatric Medical History: Reports: Hx Depression Past Surgical History: Reports: Hx Abdominal Surgery, Hx Appendectomy, Hx Cholecystectomy, Hx Tonsillectomy Review of Systems - Review of Systems Notes: Constitutional: Negative for fever. HENT: Negative for sore throat. Eyes: Negative for visual changes. Cardiovascular: Negative for chest pain. Respiratory: Negative for shortness of breath. Gastrointestinal: Positive for lower abdominal pain Genitourinary: Positive for vaginal bleeding Musculoskeletal: Negative for back pain. Skin: Negative for rash. Neurological: Negative for headaches, weakness or numbness. 10 point ROS negative except as marked above and in HPI. Physical Exam - Vital signs Vitals: Temp Pulse Resp BP Pulse Ox 98.5 F 90 18 122/81 100 05/13/18 19:31 05/13/18 19:31 05/13/18 19:31 05/13/18 19:31 05/13/18 19:31 Interpretation: Normal Notes: PHYSICAL EXAMINATION: GENERAL: Well-appearing, well-nourished and in no acute distress. HEAD: Atraumatic, normocephalic. EYES: Pupils equal round and reactive to light, extraocular movements intact, sclera anicteric, conjunctiva are normal. ENT: nares patent, oropharynx clear without exudates. Moist mucous membranes. NECK: Normal range of motion, supple without lymphadenopathy LUNGS: Breath sounds clear to auscultation bilaterally and equal. No wheezes rales or rhonchi. HEART: Regular rate and rhythm without murmurs ABDOMEN: Soft, nontender, normoactive bowel sounds. No guarding, no rebound. No masses appreciated. EXTREMITIES: Normal range of motion, no pitting or edema. No cyanosis. NEUROLOGICAL: No focal neurological deficits. Moves all extremities spontaneously and on command. PSYCH: Normal mood, normal affect. SKIN: Warm, Dry, normal turgor, no rashes or lesions noted. Course - Re-evaluation Re-evalutation: 05/13/18 23:18 Presentation is most consistent with dysfunctional uterine bleeding and otherwise well-appearing patient. Her hemoglobin was within normal limits. She is not . No tachycardia or hypotension. Examination is otherwise unremarkable. She denies bleeding through more than 2 pads an hour at any point in time. Ultrasound unremarkable. No active bleeding at this time. Patient has been instructed to take her control pills continuously without the placebo pill week. She has been encouraged to follow-up with [facility]. At this time will discharge with return precautions and follow-up recommendations. Verbal discharge instructions given a the bedside and opportunity for questions given. Medication warnings reviewed. Patient is in agreement with this plan and has verbalized understanding of return precautions and the need for primary care follow-up in the next 24-72 hours. - Vital Signs Vital signs: Temp Pulse Resp BP Pulse Ox 98.5 F 76 18 113/67 97 05/13/18 23:51 05/13/18 23:51 05/13/18 23:51 05/13/18 23:51 05/13/18 23:51 - Laboratory Result Diagrams: 05/13/18 20:11 05/13/18 20:11 Laboratory results interpreted by me: 05/13/18 05/13/18 20:11 20:53 Calcium 10.7 H Urine Blood LARGE H - Diagnostic Test Radiology reviewed: Reports reviewed Discharge - Discharge Clinical Impression: Dysfunctional uterine bleeding, Right lower quadrant abdominal pain Condition: Good Disposition: HOME, SELF-CARE Additional Instructions: You were seen today for dysfunctional uterine bleeding. This is when you have vaginal bleeding and abdominal cramping off of your normal menstrual cycle. I advise you to take your hormonal control pills continuously without the placebo pill week. You need to follow-up with [facility] or your primary care physician the next 1-3 days. Return immediately if you worsening pain, you began bleeding through more than 2 pads per hour for more than 3 hours, you pass out, have persistent vomiting, develop a fever greater than 100.4F, or any other symptoms that are concerning to you. Referrals: RELL MARIEE MD [Primary Care Provider] - Follow up as needed
[2018-05-13 23:51] VITALS: BP 113/67
== END 2018-05-13 23:51 | disposition home or self-care (01) ==
LOC: ER 19:21
DX: N93.8 Other specified abnormal uterine and vaginal bleeding (principal); R10.31 Right lower quadrant pain; Z88.6 Allergy status to analgesic agent; Z88.0 Allergy status to penicillin; Z88.3 Allergy status to other anti-infective agents; Z90.49 Acquired absence of other specified parts of digestive tract
CPT/HCPCS: 99284; 96372; 36415; 84703; 85025; 80048; 81001; 76856; 93976; J1885

== ENCOUNTER → 2019-01-21 | Outpatient (CLI) | payer OTHER ==
--- NOTE | 2019-01-21 11:29 | RADIOLOGY REPORT (SQ) ---
EXAM DESCRIPTION: CT HEAD WITHOUT COMPLETED DATE/TIME: 01/21/2019 11:13 am REASON FOR STUDY: HEADACHE (R51), MIGRAINE W/O AURA, NOT INTRACTABLE, W/O STATUS MIGRAINOSUS G43.009 MIGRAINE W/O AURA, NOT INTRACTABLE, W/O STATUS MIGRA R51 HEADACHE COMPARISON: None. TECHNIQUE: Axial images acquired through the brain without intravenous contrast. Images reviewed wi th bone, brain and subdural windows. Additional sagittal and coronal reconstructions were generated. Images stored on PACS. All CT scanners at this facility use dose modulation, iterative reconstruction, and/or weight based d osing when appropriate to reduce radiation dose to as low as reasonably achievable (ALARA). [facility]: Dose Right [facility]: CareDose [facility]: Dose Right [facility]: Teradose 4D [facility]: TrialPay RADIATION DOSE: CT Rad equipment meets quality standard of care and radiation dose reduction techniq ues were employed. CTDIvol: 48.6 mGy. DLP: 930 mGy-cm. mGy. LIMITATIONS: None. FINDINGS: There is no acute intracranial hemorrhage, vascular territorial infarct, extra-axial fluid collection, mass effect or midline shift. There is no effacement of the cerebral sulci or basal sub arachnoid cisterns. The palacios-white matter differentiation is preserved. The caliber of the ventricl es is concordant with the degree of sulcation. The orbits and globes are normal. The paranasal sinuses and the mastoid air cells are clear. There is no fracture of the calvarium. 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 IMPRESSION: No acute intracranial abnormality. EVIDENCE OF ACUTE STROKE: NO. COMMENT: Quality ID # [id number]: Final reports with documentation of one or more dose reduction techniques (e.g., Automated exposure control, adjustment of the mA and/or kV according to patient size, use of iterative reconstruction technique) TECHNICAL DOCUMENTATION: JOB ID: [id number] [employer]- All Rights Reserved Reading location - IP/workstation name: [email or web address]
== END ==
LOC: RAD 10:43
PROVIDERS: ATTEND Internal Medicine
DX: G43.009 Migraine without aura, not intractable, without status migrainosus (principal)
CPT/HCPCS: 70450

== ENCOUNTER → 2019-11-16 | Outpatient (CLI) | payer OTHER ==
--- NOTE | 2019-11-16 18:15 | RADIOLOGY REPORT (SQ) ---
EXAM DESCRIPTION: U/S NON-OB PELVIS W/O DOP IMAGES COMPLETED DATE/TIME: 11/16/2019 5:42 pm REASON FOR STUDY: (N83.209)UNSPECIFIED OVARIAN CYST, UNSPECIFIED ALFRED N83.[address], UNSPECIFIED SIDELMP 7 to 8 months ago COMPARISON: 05/13/2018 TECHNIQUE: Dynamic and static grayscale images acquired of the pelvis via transabdominal approach an d recorded on PACS. Additional selected color Doppler and spectral images recorded. LIMITATIONS: None. FINDINGS: UTERUS: Contour normal. No mass. ENDOMETRIAL STRIPE: No focal or generalized thickening. No masses. CERVIX: No nabothian cysts. RIGHT OVARY AND DOPPLER: Normal size. No worrisome masses. Multiple peripheral follicles. Normal ar terial vascular flow without evidence for torsion. LEFT OVARY AND DOPPLER: Normal size. No worrisome masses. Multiple peripheral follicles. Normal art erial vascular flow without evidence for torsion. FREE FLUID: None noted. OTHER: No other significant finding. MEASUREMENTS: UTERUS: 8.1 x 4 x 2.6 cm. ENDOMETRIAL STRIPE: 4 mm. RIGHT OVARY: 3 x 2.4 x 2.7 cm. LEFT OVARY: 2.6 x 2.3 x 2.2 cm. IMPRESSION: No acute finding. The appearance of the ovaries raises the possibility of polycystic ov jerzy syndrome. TECHNICAL DOCUMENTATION: JOB ID: [id number] 2010 [employer]- All Rights Reserved Rev-07/12 Reading location - IP/workstation name: [email or web address]
== END ==
LOC: RAD 17:14
PROVIDERS: ATTEND Internal Medicine
DX: N83.209 Unspecified ovarian cyst, unspecified side (principal)
CPT/HCPCS: 76856

== ENCOUNTER 2020-02-17 17:24 | Emergency (ER) | payer OTHER ==
--- NOTE | 2020-02-17 18:49 | ER Document Report ---
ED Medical Screen (RME) - General Stated Complaint: BREATHING/ COVID+ Time Seen by Provider: 02/17/20 18:40 Primary Care Provider: RELL MARIEE MD [Primary Care Provider] - Follow up as needed Notes: Patient presents complaining of chest pain shortness of breath and leg pain that started yesterday. Patient complains of generalized body aches with fever of 100.6 at home. Patient reports symptoms started yesterday and today she had a rapid Covid test that tested positive. Patient states her doctor advised her to come here to get the complete evaluation for possible blood clots. I have greeted and performed a rapid initial assessment of this patient. A comprehensive ED assessment and evaluation of the patient, analysis of test results and completion of the medical decision making process will be conducted by additional ED providers. TRAVEL OUTSIDE OF THE [place] IN LAST 30 DAYS: No - Related Data Allergies/Adverse Reactions: amitriptyline Allergy (Verified 05/13/18 19:26) "Chest feels like its on fire" codeine Allergy (Verified 05/13/18 19:26) GI upset doxycycline Allergy (Verified 05/13/18 19:26) Rash erythromycin base Allergy (Verified 05/13/18 19:26) Rash Penicillins Allergy (Verified 05/13/18 19:26) "Breathing problems" promethazine [From Phenergan] Allergy (Verified 05/13/18 19:26) Irritability sulfamethoxazole [From Bactrim] Allergy (Verified 05/13/18 19:27) mouth ulcers trimethoprim [From Bactrim] Allergy (Verified 05/13/18 19:27) mouth ulcers Past Medical History Neurological Medical History: Renal/ Medical History: Denies: Hx Peritoneal Dialysis Musculoskeltal Medical History: Psychiatric Medical History: Reports: Hx Depression Past Surgical History: Reports: Hx Abdominal Surgery, Hx Appendectomy, Hx Cholecystectomy, Hx Tonsillectomy Physical Exam - Vital signs Vitals: Temp Pulse Resp BP Pulse Ox 98.5 F 112 H 20 122/74 99 02/17/20 17:29 02/17/20 17:29 02/17/20 17:29 02/17/20 17:29 02/17/20 17:29 - General General appearance: Appears well, Alert - Respiratory Respiratory status: No respiratory distress. No: Tachypnea Course - Vital Signs Vital signs: Temp Pulse Resp BP Pulse Ox 98.5 F 112 H 20 122/74 99 02/17/20 17:29 02/17/20 17:29 02/17/20 17:29 02/17/20 17:29 02/17/20 17:29 Doctor's Discharge - Discharge Referrals: RELL MARIEE MD [Primary Care Provider] - Follow up as needed
--- NOTE | 2020-02-17 19:19 | ER Document Report ---
ED General - General Chief Complaint: Shortness Of Breath Stated Complaint: BREATHING/ COVID+ Time Seen by Provider: 02/17/20 18:40 Primary Care Provider: RELL MARIEE MD [Primary Care Provider] - Follow up as needed TRAVEL OUTSIDE OF THE [place] IN LAST 30 DAYS: No - HPI Notes: 24-year-old female presents with known Covid infection. She states that Saturday/Saturday she developed generalized body aches, cough, congestion, shortness of breath. Her rapid Covid test was positive today. Her fianc is also sick. She reports she has a history of asthma, states that her primary care doctor prescribed her dexamethasone however she has not taken it yet, though notes that it is filled and in her bag. She has had fever, 100.6 at home today. She states that she really has not taken anything in terms of medications. No vomiting or diarrhea. There is reference to a comment about being checked for blood clots in her triage note, patient states that her fianc called his doctor today and he was advised to come to the emergency department, that comment was made to him. She states that she came today because she has asthma and feel like she should be more on top of things. Patient has no known previous history of blood clot. - Related Data Allergies/Adverse Reactions: amitriptyline Allergy (Verified 05/13/18 19:26) "Chest feels like its on fire" codeine Allergy (Verified 05/13/18 19:26) GI upset doxycycline Allergy (Verified 05/13/18 19:26) Rash erythromycin base Allergy (Verified 05/13/18 19:26) Rash Penicillins Allergy (Verified 05/13/18 19:26) "Breathing problems" promethazine [From Phenergan] Allergy (Verified 05/13/18 19:26) Irritability sulfamethoxazole [From Bactrim] Allergy (Verified 05/13/18 19:27) mouth ulcers trimethoprim [From Bactrim] Allergy (Verified 05/13/18 19:27) mouth ulcers Home Medications: singulair/ xopenex PRN Past Medical History - General Information source: Patient - Social History Smoking Status: Never Smoker Frequency of alcohol use: None Drug Abuse: None Family History: Reviewed & Not Pertinent Neurological Medical History: Renal/ Medical History: Denies: Hx Peritoneal Dialysis Musculoskeletal Medical History: Psychiatric Medical History: Reports: Hx Depression Past Surgical History: Reports: Hx Abdominal Surgery, Hx Appendectomy, Hx Cholecystectomy, Hx Tonsillectomy Review of Systems - Review of Systems Constitutional: Chills, Fever EENT: No symptoms reported Cardiovascular: denies: Chest pain Respiratory: Cough, Hurts to breathe, Short of breath Gastrointestinal: denies: Abdominal pain, Diarrhea, Nausea, Vomiting Genitourinary: No symptoms reported Female Genitourinary: No symptoms reported Musculoskeletal: Muscle pain Skin: No symptoms reported Hematologic/Lymphatic: No symptoms reported Neurological/Psychological: denies: Headaches Physical Exam - Vital signs Vitals: Temp Pulse Resp BP Pulse Ox 98.5 F 112 H 20 122/74 99 02/17/20 17:29 02/17/20 17:29 02/17/20 17:29 02/17/20 17:29 02/17/20 17:29 - General General appearance: Appears well, Alert In distress: None - HEENT Head: Normocephalic, Atraumatic Extraocular movements intact: Yes Pupils: PERRL Neck: Supple - Respiratory Respiratory status: No: Retractions, Tachypnea Breath sounds: Normal - Cardiovascular Rhythm: Regular Heart sounds: Normal auscultation - Abdominal Tenderness: Nontender - Extremities General lower extremity: No: Edema - Neurological Neuro grossly intact: Yes Cognition: Normal Orientation: AAOx4 - Psychological Associated symptoms: Normal affect - Skin Skin Temperature: Warm Course - Re-evaluation Re-evalutation: 24-year-old female history of asthma here with known Covid infection. Has been symptomatic for the past 3 to 4 days. On exam she is well-appearing, afebrile, no hypoxia, lungs clear to auscultation bilaterally, tachycardic on arrival daniels nikki normal rate on exam. Discussed with her presentation today is consistent with Covid infection at this time. Labs ordered through triage. Chest x-ray is without consolidation. Will treat symptomatically with Toradol, fluids and Decadron given her asthmatic status. Patient does not want to try any guaifenesin as a reported reaction of jitteriness in the past. 02/17/20 21:30 No leukocytosis or left shift. No acute anemia. Electrolytes within normal limits. Creatinine within normal limits. LFTs within normal limits. No elevation of CK. I went into reassess patient, she remains in stable condition, no known episodes of hypoxia while in the emergency department. I discussed continued symptomatic care at home. Temperature has increased to 99.6, Tylenol ordered. Return precautions given, stable time of discharge. - Vital Signs Vital signs: Temp Pulse Resp BP Pulse Ox 99.5 F 112 H 20 122/74 99 02/17/20 21:04 02/17/20 17:29 02/17/20 17:29 02/17/20 17:29 02/17/20 17:29 - Laboratory Results Result Diagrams: 02/17/20 19:44 02/17/20 19:44 Laboratory Results Interpreted: 02/17/20 19:44 Lymph % (Auto) 12.5 L [place] % (Auto) 15.0 H Critical Laboratory Results Reviewed: No Critical Results - Radiology Results Critical Radiology Results Reviewed: No Critical Results Discharge - Discharge Clinical Impression: COVID-19 virus infection Disposition: HOME, SELF-CARE Instructions: COVID-19 Guidance for Persons Under Investigation Additional Instructions: Please continue symptomatic care at home. Be sure to drink plenty of fluids. Return to the emergency department for any concerning worsening symptoms. Referrals: RELL MARIEE MD [Primary Care Provider] - Follow up as needed
--- NOTE | 2020-02-17 19:39 | RADIOLOGY REPORT (SQ) ---
EXAM DESCRIPTION: CHEST SINGLE VIEW IMAGES COMPLETED DATE/TIME: 02/17/2020 6:17 pm REASON FOR STUDY: cough, cp COVID positive COMPARISON: None. EXAM PARAMETERS: NUMBER OF VIEWS: One view. TECHNIQUE: Single frontal radiographic view of the chest acquired. RADIATION DOSE: NA LIMITATIONS: None. FINDINGS: LUNGS AND PLEURA: No opacities, masses or pneumothorax. No pleural effusion. MEDIASTINUM AND HILAR STRUCTURES: No masses. Contour normal. HEART AND VASCULAR STRUCTURES: Heart normal in size. Normal vasculature. BONES: No acute findings. HARDWARE: None in the chest. OTHER: No other significant finding. IMPRESSION: NO ACUTE RADIOGRAPHIC FINDING IN THE CHEST. TECHNICAL DOCUMENTATION: JOB ID: [id number] 2010 [employer]- All Rights Reserved Reading location - IP/workstation name: [email or web address]
[2020-02-17] MEDS ORDERED: DEXAMETHASONE SOD PHOSPHATE INJ 4 MG/1 ML VIAL IV ONE (19:49)
[2020-02-17] MEDS ORDERED: KETOROLAC TROMETHAMINE INJ/PF 30 MG/1 ML SDV IV ONE (19:49)
[2020-02-17] MEDS ORDERED: RINGERS SOLUTION,LACTATED 1,000 ML IV ONE (19:50)
[2020-02-17 19:58] LABS: ABSOLUTE EOSINOPHILS # (AUTO) 0.1 10^3/uL (0.0-0.6); ABSOLUTE LYMPHOCYTES (AUTO) 0.7 10^3/uL (0.5-4.7); ABSOLUTE MONOCYTES (AUTO) 0.8 10^3/uL (0.1-1.4); BASOPHILS % (AUTO) 0.5 % (0-2); EOSINOPHILS % (AUTO) 1.1 % (0-6); HEMOGLOBIN 13.6 g/dL (12.0-15.5); LYMPHOCYTES % (AUTO) 12.5 % (13-45); MEAN CORPUSCULAR HEMOGLOBIN 29.3 pg (27.0-33.4); MEAN CORPUSCULAR HGB CONC 33.9 g/dL (32.0-36.0); MEAN CORPUSCULAR VOLUME 86 fl (80-97); PLATELET COUNT 248 10^3/uL (150-450); RED BLOOD COUNT 4.63 10^6/uL (3.72-5.28); RED CELL DISTRIBUTION WIDTH 12.8 % (11.5-14.0); SEGMENTED NEUTROPHILS % (AUTO) 70.9 % (42-78); TOTAL CELLS COUNTED % (AUTO) 100 %; WHITE BLOOD COUNT 5.6 10^3/uL (4.0-10.5)
[2020-02-17 20:14] LABS: ALBUMIN 4.7 g/dL (3.5-5.0); ALKALINE PHOSPHATASE 71 U/L (38-126); ANION GAP 9 (5-19); ASPARTATE AMINO TRANSFERASE 28 U/L (14-36); BILIRUBIN,DIRECT 0.1 mg/dL (0.0-0.4); BILIRUBIN,TOTAL 0.5 mg/dL (0.2-1.3); BLOOD UREA NITROGEN 7 mg/dL (7-20); CALCIUM 9.8 mg/dL (8.4-10.2); CARBON DIOXIDE 27 mmol/L (22-30); CHLORIDE 101 mmol/L (98-107); CREATINE KINASE 49 U/L (30-135); GLUCOSE 98 mg/dL (75-110); POTASSIUM 4.3 mmol/L (3.6-5.0); TOTAL PROTEIN 7.8 g/dL (6.3-8.2)
[2020-02-17] MEDS ORDERED: ACETAMINOPHEN 325 MG TABLET PO ONE (21:16)
[2020-02-17 23:07] VITALS: BP 111/83
--- NOTE | 2020-02-18 08:07 | EKG REPORT ---
SEVERITY:- ABNORMAL ECG - SINUS TACHYCARDIA CONSIDER RVH W/ SECONDARY REPOL ABNORMALITY : Confirmed by: James Valdez MD 18-Feb-2020 08:07:15
== END 2020-02-17 23:07 | disposition home or self-care (01) ==
LOC: ER 17:24
DX: U07.1 COVID-19 (principal); J45.909 Unspecified asthma, uncomplicated; R05 Cough; R06.02 Shortness of breath; R07.1 Chest pain on breathing; M79.10 Myalgia, unspecified site; Z88.8 Allergy status to other drugs, medicaments and biological substances; Z88.6 Allergy status to analgesic agent; Z88.5 Allergy status to narcotic agent; Z88.1 Allergy status to other antibiotic agents; Z88.0 Allergy status to penicillin
CPT/HCPCS: 93005; 99285; 96361; 96374; 96375; 36415; 82550; 85025; 80053; 71045; 93010; J1100; J1885; J7120